=== PATIENT | male | born 1935 | race Caucasian/White ===

== ENCOUNTER 2017-05-26 23:37 | Inpatient (IN) | payer OTHER, MEDICARE ==
[~2017-05-26] VITALS: Ht 177.8 cm; Wt 82.7 kg
[2017-05-26 23:45] VITALS: BP 94/53; PULSE 178; RESP 32; TEMP 98.4; O2SAT 95
[2017-05-26 23:50] VITALS: O2SAT 96
[2017-05-26 23:55] VITALS: BP 95/54; PULSE 175; RESP 32; O2SAT 100
[2017-05-27] VITALS (20 sets, daily range): BP systolic 88–140; BP diastolic 50–84; PULSE 72–176; RESP 17–34; TEMP 98–98.8; O2SAT 90–100
[2017-05-27] MEDS ORDERED: SODIUM CHLORIDE 0.9% FLUSH 10 ML FLUSH IVF PRN
[2017-05-27] MEDS ORDERED: ADENOSINE IV SOLN 3 MG/ML 2 ML VIAL IV PUSH ONE ×2
[2017-05-27 00:13] LABS: AUTOMATED NEUTROPHIL # 9.9 TH/MM3 (1.8-7.7); BASOPHIL % 0.2 % (0.0-2.0); EOSINOPHIL % 0.4 % (0.0-4.0); HEMOGLOBIN 13.9 GM/DL (13.0-17.0); LYMPH % 9.2 % (9.0-44.0); LYMPHOCYTE # 1.1 TH/MM3 (1.0-4.8); MEAN CELL VOLUME 91.2 FL (80.0-100.0); MEAN CORPUSCULAR HEMOGLOBIN 30.1 PG (27.0-34.0); MEAN PLATELET VOLUME 8.8 FL (7.0-11.0); MONO % 8.5 % (0.0-8.0); NEUT % 81.7 % (16.0-70.0); PLATELET COUNT 137 TH/MM3 (150-450); RED CELL DISTRIBUTION WIDTH 14.2 % (11.6-17.2); WHITE BLOOD COUNT 12.1 TH/MM3 (4.0-11.0)
--- NOTE | 2017-05-27 00:15 | RADRPT ---
EXAM DATE/TIME: 05/26/2017 23:52 [place] COMPARISON: No previous studies available for comparison. INDICATIONS : Short of breath. MEDICAL HISTORY : Unobtainable SURGICAL HISTORY : Unobtainable ENCOUNTER: Initial ACUITY: 1 day PAIN SCORE: Non-responsive. LOCATION: Bilateral chest FINDINGS: 2 AP views of the chest. The lungs are clear. Cardiomediastinal select is within normal limits. No ev idence of pleural effusion or pneumothorax. CONCLUSION: No acute cardiopulmonary disease identified. Tomy Albarran MD on May 27, 2017 at 0:13 Board Certified Radiologist. This report was verified electronically.
[2017-05-27] MEDS ORDERED: OMEP40CA2 PO (00:21)
[2017-05-27] MEDS ORDERED: SYMB160A INH (00:21)
[2017-05-27] MEDS ORDERED: METO25TA3 PO (00:21)
[2017-05-27] MEDS ORDERED: EZET10 PO (00:21)
[2017-05-27] MEDS ORDERED: IPRA0.02 NEB (00:21)
[2017-05-27] MEDS ORDERED: PLAV75TA29 PO (00:21)
[2017-05-27] MEDS ORDERED: ATOR80TA45 PO (00:21)
[2017-05-27] MEDS ORDERED: FINA5TAB2 PO (00:21)
[2017-05-27] MEDS ORDERED: ASPI-516 CHEW (00:21)
[2017-05-27] MEDS ORDERED: TERA5CAP3 PO (00:21)
[2017-05-27] MEDS ORDERED: SPIRCAP INH (00:21)
[2017-05-27] MEDS ORDERED: LISI-515 PO (00:21)
[2017-05-27 00:23] LABS: INTERNATIONAL NORMALIZED RATIO 1.1 RATIO; PROTHROMBIN TIME - PATIENT 11.3 SEC (9.8-11.6)
--- NOTE | 2017-05-27 00:34 | PD ---
HPI Chief Complaint: Respiratory Symptoms Time Seen by Provider: 23:46 Travel History International Travel<30 days: No Contact w/Intl Traveler<30days: No Traveled to known affect area: No History of Present Illness HPI The patient is an 81 year old -male who presents to the [facility] emergency department with a history of increased shortness of breath throughout the day yesterday with frequent use of his nebulizer treatments. He has a history of severe COPD. His reports that he has basically been unable to breathe without using his nebulizer machine throughout the day today. His shortness of breath became worse when he was trying to lie down to go to sleep. He told his to call ambulance services. On their arrival, the patient was noted to have heart rate in the low 100s, O2 saturations in the mid 70's on room air. The patient had wheezing throughout all lung oro. IV access was obtained prior to her arrival and the patient was given 3 albuterol nebulizer treatments along with 125 mg of Solu-Medrol IV. The patient en route to this facility had improvement in his O2 saturations up into the mid 90s. However, the patient's heart rate went up into the 180s and his blood pressure began to drop. The patient's blood pressure on arrival is in the 70s systolic. The patient denies having any chest pain or chest pressure. He reports that he has memory problems, therefore he requests that his provides his history for him. On her arrival she reports that he has a history of tachycardia 3 times a day past. She reports that medication was given to abort it. She reports that he has seen a clinical cytopathologist in [place] regarding this. She was told that if he develops tachycardia again he should try to bear down to discontinue it. She is unsure of the name of the type of tachycardia. She reports that he has a long-standing history of severe COPD which is been much worse over the last 2 years. On review of systems, the patient denies having any known recent fevers , neck pain, chest pain, abdominal pain, vomiting, diarrhea, urinary symptoms, or neurologic symptoms. The patient reports that he has had a worsening cough over the last couple days. 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 Heart Rhythm Problems: Yes (SVT) Cancer: Yes (PROSTATE) COPD: Yes Cerebrovascular Accident: Yes Hypertension: Yes Medical other: Yes (TOTAL R. CAROTID BLOCK) Tetanus Vaccination: Unknown Influenza Vaccination: No ?: Not Past Surgical History Narrative Surgical The patient's past surgical history is significant for tonsil and adenoidectomy , history of esophageal dilatation. Social History Alcohol Use: No Tobacco Use: No Substance Use: No Allergies-Medications (Allergen,Severity, Reaction): Coded Allergies: No Known Allergies (Verified Allergy, Severe, 05/27/17) Reported Meds & Prescriptions Reported Meds & Active Scripts Active Reported Ipratropium Neb (Ipratropium [place]) 0.5 Mg/2.5 Ml Amp 0.5 Mg NEB Q4HR NEB PRN Atorvastatin (Atorvastatin Calcium) 80 Mg Tab 80 Mg PO HS Spiriva Handihaler (Tiotropium Inh) 18 Mcg Cap 18 Mcg INH DAILY 1 capsule = 18 mcg Symbicort Inh (Budesonide/Formoterol Fumarate) 160-4.5 Mcg/Act Aero 2 Puff INH Q12HR Terazosin (Terazosin HCl) 5 Mg Cap 5 Mg PO HS Lisinopril 20 Mg Tab 20 Mg PO DAILY Omeprazole 40 Mg Cap 40 Mg PO DAILY Metoprolol Tartrate 25 Mg Tab 25 Mg PO BID Finasteride 5 Mg Tab 5 Mg PO DAILY Do not crush. Zetia (Ezetimibe) 10 Mg Tab 10 Mg PO DAILY Plavix (Clopidogrel Bisulfate) 75 Mg Tab 75 Mg PO DAILY Aspirin 81 Mg Chew 81 Mg CHEW DAILY Review of Systems Except as stated in HPI: all other systems reviewed are Neg General / Constitutional: No: Fever Eyes: No: Visual changes HENT: Positive: Congestion, No: Headaches Cardiovascular: Positive: Palpitations, Tachycardia, Dyspnea on exertion, No: Chest Pain or Discomfort Respiratory: Positive: Cough, Shortness of Breath Gastrointestinal: No: Abdominal Pain Genitourinary: No: Dysuria Musculoskeletal: No: Pain Skin: No Rash Neurologic: No: Weakness, Focal Abnormalities, Change in Mentation, Slurred Speech, Sensory Disturbance Psychiatric: No: Depression Endocrine: No: Polydipsia Hematologic/Lymphatic: No: Easy Bruising Physical Exam Narrative General: The patient is a well-developed well-nourished male, uncomfortable appearing on arrival with some respiratory distress noted. Head and Neck exam: Head is normocephalic atraumatic. Eyes: EOMI, pupils are equal round and reactive to light. Nose: Midline septum with pink mucous membranes Mouth: Dentition unremarkable. Moist mucus membranes. Posterior oropharynx is not erythematous. No tonsillar hypertrophy. Uvula midline. Airway patent. Neck: No palpable lymphadenopathy. No nuchal rigidity. No thyromegaly. Cardiovascular: Regular sounding tachycardia with a rate in the 180s without murmurs, gallops, or rubs. No pulse deficit to the extremities and simultaneous auscultation and palpation of his radial artery. Initial blood pressure was low in the 70s systolic, however repeat blood pressure is up to 94 systolic. Lungs: Expiratory wheezes audible throughout bilateral lung oro, no rhonchi, no crackles. The patient has a prolonged expiratory phase of breathing. The patient has some accessory muscle use noted. No paroxysmal abdominal breathing. Abdomen: Soft, without tenderness to palpation in all 4 quadrants of the abdomen. No guarding, rebound, or rigidity. Normal bowel sounds are audible. No tenderness on palpation of McBurney's point. Extremities: No clubbing or cyanosis. The patient has 2+ pitting edema bilateral lower extremities. 2+ pulses in all 4 extremities. No calf tenderness on palpation. Back: No costovertebral angle tenderness to palpation. Neurologic Exam: Grossly nonfocal. Skin Exam: No rash noted. Intact skin that is warm and dry. Data Data Last Documented VS Vital Signs Date Time Temp Pulse Resp B/P (MAP) Pulse Ox O2 Delivery O2 Flow Rate FiO2 05/27/17 01:51 97 40 05/27/17 00:55 116 20 125/59 (81) BiPAP 05/26/17 23:50 4.00 05/26/17 23:45 98.4 Orders Orders Electrocardiogram (05/26/17 23:47) Complete Blood Count With Diff (05/26/17 23:47) Comprehensive Metabolic Panel (05/26/17 23:47) Creatine Kinase (Cpk) (05/26/17 23:47) Ckmb (Isoenzyme) Profile (05/26/17 23:47) Troponin I (05/26/17 23:47) B-Type Natriuretic Peptide (05/26/17 23:47) Prothrombin Time / Inr (Pt) (05/26/17 23:47) Act Partial Throm Time (Ptt) (05/26/17 23:47) C-Reactive Protein (Crp) (05/26/17 23:47) Lipase (05/26/17 23:47) Urinalysis - C+S If Indicated (05/26/17:47) Magnesium (Mg) (05/26/17 23:47) Thyroid Stimulating Hormone (05/26/17 23:47) Chest, Single Ap (05/26/17 23:47) Iv Access Insert/Monitor (05/26/17 23:47) Ecg Monitoring (05/26/17:47) Oximetry (05/26/17:47) Adenosine Inj (Adenocard Inj) (05/27/17 00:00) Adenosine Inj (Adenocard Inj) (05/27/17 00:00) Sodium Chlor 0.9% 1000 Ml Inj (Ns 1000 M (05/27/17 00:00) Arterial Blood Gas (Abg) (05/26/17 23:51) Blood Culture (05/26/17 23:51) Urinary Catheter Insert/Apply (05/26/17 23:51) Sodium Chloride 0.9% Flush (Ns Flush) (05/27/17 00:00) Resp Bipap / Cpap Non Invas Vt (05/26/17 23:51) Lactic Acid Sepsis Protocol (05/26/17 23:51) CKMB (05/26/17 23:38) CKMB% (05/26/17 23:38) Sodium Chlor 0.9% 1000 Ml Inj (Ns 1000 M (05/27/17 01:52) Sodium Chlor 0.9% 1000 Ml Inj (Ns 1000 M (05/27/17 01:52) Sodium Chlor 0.9% 1000 Ml Inj (Ns 1000 M (05/27/17 01:52) Ceftriaxone Inj (Rocephin Inj) (05/27/17 02:00) Azithromycin Inj (Zithromax Inj) (05/27/17 02:00) Admit Order (Ed Use Only) (05/27/17 02:07) Labs Laboratory Tests Test 05/26/17 23:38 05/26/17 23:58 05/27/17 00:02 05/27/17 01:50 White Blood Count 12.1 TH/MM3 Red Blood Count 4.60 MIL/MM3 Hemoglobin 13.9 GM/DL Hematocrit 42.0 % Mean Corpuscular Volume 91.2 FL Mean Corpuscular Hemoglobin 30.1 PG Mean Corpuscular Hemoglobin Concent 33.0 % Red Cell Distribution Width 14.2 % Platelet Count 137 TH/MM3 Mean Platelet Volume 8.8 FL Neutrophils (%) (Auto) 81.7 % Lymphocytes (%) (Auto) 9.2 % Monocytes (%) (Auto) 8.5 % Eosinophils (%) (Auto) 0.4 % Basophils (%) (Auto) 0.2 % Neutrophils # (Auto) 9.9 TH/MM3 Lymphocytes # (Auto) 1.1 TH/MM3 Monocytes # (Auto) 1.0 TH/MM3 Eosinophils # (Auto) 0.0 TH/MM3 Basophils # (Auto) 0.0 TH/MM3 CBC Comment DIFF FINAL Differential Comment Prothrombin Time 11.3 SEC Prothromb Time International Ratio 1.1 RATIO Activated Partial Thromboplast Time 28.9 SEC Blood Urea Nitrogen 18 MG/DL Creatinine 1.63 MG/DL Random Glucose 131 MG/DL Total Protein 6.2 GM/DL Albumin 3.1 GM/DL Calcium Level 8.1 MG/DL Magnesium Level 1.7 MG/DL Alkaline Phosphatase 62 U/L Aspartate Amino Transf (AST/SGOT) 20 U/L Alanine Aminotransferase (ALT/SGPT) 16 U/L Total Bilirubin 0.4 MG/DL Sodium Level 137 MEQ/L Potassium Level 3.5 MEQ/L Chloride Level 99 MEQ/L Carbon Dioxide Level 25.2 MEQ/L Anion Gap 13 MEQ/L Estimat Glomerular Filtration Rate 41 ML/MIN Total Creatine Kinase 304 U/L Creatine Kinase MB 7.0 NG/ML Troponin I 0.02 NG/ML C-Reactive Protein 11.40 MG/DL B-Type Natriuretic Peptide 28 PG/ML Lipase 62 U/L Thyroid Stimulating Hormone 3rd Gen 1.970 uIU/ML Lactic Acid Level 4.6 mmol/L 3.7 mmol/L Blood Gas Puncture Site RT RADIAL Blood Gas Patient Temperature 98.6 Blood Gas HCO3 21 mmol/L Blood Gas Base Excess -4.6 mmol/L Blood Gas Oxygen Saturation 97 % Arterial Blood pH 7.28 Arterial Blood Partial Pressure CO2 46 mmHg Arterial Blood Partial Pressure O2 113 mmHG Arterial Blood Oxygen Content 18.2 Vol % Arterial Blood Carboxyhemoglobin 1.1 % Arterial Blood Methemoglobin 0.5 % Blood Gas Hemoglobin 13.2 G/DL Oxygen Delivery Device NPPV Blood Gas Ventilator Setting IPAP 12/ EPAP 5 Blood Gas Inspired Oxygen 40 % MDM Medical Decision Making Medical Screen Exam Complete: Yes Emergency Medical Condition: Yes Medical Record Reviewed: Yes Interpretation(s) Last Impressions Chest X-Ray 05/26/17 [id number] Signed Impressions: Service Date/Time: April 23:52 - CONCLUSION: No acute cardiopulmonary disease identified. Tomy Albarran MD Differential Diagnosis COPD exacerbation, versus pneumothorax, versus congestive heart failure, versus acute coronary syndrome, versus SVT, versus atrial fibrillation, versus ventricular tachycardia with pulse Narrative Course During the course of the patients emergency department visit, the patients history, examination, and differential diagnosis were reviewed with the patient. The patient was placed on a air sampling and monitoring with oximetry and frequent blood pressure monitoring. The patient had IV access obtained and blood work sent for analysis. An ECG was done on arrival. The patient's ECG shows a regular appearing tachycardia with a heart rate of 183, QRS duration 130 ms, QTC 385 ms with marked right axis deviation, right bundle branch block, ST depression noted. As the patient's initial blood pressure was low. The patient was started on normal saline 1 L IV fluid bolus in preparation for possible synchronize cardioversion. Pacer pads were applied to the patient. The patient's blood pressure improved. The patient was placed on BiPAP by respiratory therapy. The patient was given adenosine 6 mg IV without response, and additional 12 mg IV was pushed by me. The patient converted to a sinus tachycardia. EKG then showed sinus tachycardia rate of 123, right bundle branch block with a left anterior fascicular block, no other acute ST changes. On reassessment, the patient was resting more comfortably, shortness of breath was improving on BiPAP. Blood pressure had improved to a systolic between the 120s and 130s. The patients laboratory studies were reviewed and remarkable for a white count of 12.1, hemoglobin 13.9, platelets 137 with 81.7 neutrophils. Blood cultures 2 were ordered, lactic acid was sent for analysis. CMP is remarkable for creatinine 1.63, glucose 131, calcium 8.1, CPK 304, troponin I 0.02, CRP is elevated at 11.4, BNP 28, lipase 62, TSH 1.97. Due to a concern for underlying infectious process with a respiratory source, the patient was started on Rocephin 1 g IV, Zithromax 500 IV. As the patient's BNP was normal, the patient was started on a 30 mL per KG IV fluid bolus after his lactic acid came back elevated at 4.6. PT 11.3, PTT 28.9. Urinalysis shows 150 glucose, trace occult blood, small leukocyte esterase, 7 WBCs Radiology studies were reviewed and remarkable for a chest x-ray that showed no acute cardiopulmonary disease. The patients results were discussed with the patient, including the plan of care. I explained that further testing and/ or monitoring is indicated based on the patients history, examination, and/ or laboratory findings. Therefore, I recommended admission for additional evaluation. The patient expressed understanding and was agreeable with this plan. The patient was admitted to the hospital in critical condition and sent to a bed under the care of the oil sprayer service. Critical Care Narrative Aggregate critical care time was 42 minutes. Time to perform other separately billable procedures was not included in the critical care time. My time did not include minutes spent treating any other patients simultaneously or on activities that did not directly contribute to the patient's treatment. The services I provided to this patient were to treat and/or prevent clinically significant deterioration that could result in: Cardiovascular collapse related to cardiac arrhythmia, versus fluid overload from over resuscitation with crystalloid, versus respiratory failure I provided critical care services requiring my management, as noted below: Chart data review, documentation time, medication orders and management, vital sign assessments/reviewing monitor data, ordering and reviewing lab tests, ordering and interpreting/reviewing x-rays and diagnostic studies, care of the patient and discussion of the patient with the admitting physicians. Sepsis Criteria SIRS Criteria (2 or more): Heart rate over 90, RR > 20 or PaCO2 < 32, WBC > 80125, < 4000 or > 10% bands Sepsis Criteria (SIRS+source): Infect source susp/known Severe Sepsis (+one): Lactate >2 Criteria Outcome: Meets SIRS criteria, Meets sepsis criteria, Meets severe sepsis criteria Physician Communication Physician Communication The patient's case including history, pertinent physical examination findings, and laboratory studies were discussed with Dr. Elliott. It was agreed that the patient would be admitted to the oil sprayer's service. Diagnosis Primary Impression: SVT (supraventricular tachycardia) Additional Impressions: Lactic acidosis Hypotension Qualified Codes: I95.9 - Hypotension, unspecified COPD exacerbation Admitting Information Admitting Physician Requests: Admit Amy Leonard MD May 27, 2017 00:34
[2017-05-27 00:35] LABS: LACTIC ACID SEPSIS PROTOCOL 4.6 mmol/L (0.4-2.0)
[2017-05-27 00:49] LABS: ALBUMIN 3.1 GM/DL (3.4-5.0); ALT (GPT) 16 U/L (12-78); AST (GOT) 20 U/L (15-37); BICARBONATE 25.2 MEQ/L (21.0-32.0); BLOOD UREA NITROGEN 18 MG/DL (7-18); CALCIUM 8.1 MG/DL (8.5-10.1); CHLORIDE 99 MEQ/L (98-107); CREATININE 1.63 MG/DL (0.60-1.30); GLOMERULAR FILTRATION RATE 41 ML/MIN (>89); GLUCOSE,RANDOM 131 MG/DL (74-106); LIPASE 62 U/L (73-393); MAGNESIUM 1.7 MG/DL (1.5-2.5); SODIUM (NA) 137 MEQ/L (136-145)
[2017-05-27 00:58] LABS: ALKALINE PHOSPHATASE 62 U/L (45-117); TOTAL BILIRUBIN ADULT 0.4 MG/DL (0.2-1.0); TOTAL PROTEIN 6.2 GM/DL (6.4-8.2); TROPONIN I 0.02 NG/ML (0.02-0.05)
[2017-05-27] MEDS ORDERED: SODIUM CHLOR 0.9% 1000 ML INJ 1,000 ML IV ONE ×3 (01:52)
[2017-05-27] MEDS ORDERED: SODIUM CHLOR 0.9% 1000 ML INJ 700 ML IV ONE (01:52)
[2017-05-27] MEDS ORDERED: AZITHROMYCIN INJ 500 MG in SODIUM CHLOR 0.9% 250 ML INJ 250 ML IV ONE (02:00)
[2017-05-27] MEDS ORDERED: cefTRIAXone INJ 1,000 MG in SODIUM CHLORIDE 0.9% INJ 100 ML IV ONE (02:00)
--- NOTE | 2017-05-27 02:46 | HHI.HP ---
HPI Service Critical Care Medicine Primary Care Physician Unknown Admission Diagnosis COPD exacerbation, SVT, hypotension Diagnosis: (1) Lactic acidosis Diagnosis: Secondary (2) Vascular dementia Diagnosis: Secondary (3) Leukocytosis Diagnosis: Secondary (4) SVT (supraventricular tachycardia) Diagnosis: Principal (5) Emphysema lung Diagnosis: Secondary (6) Prostate cancer Diagnosis: Secondary (7) GERD (gastroesophageal reflux disease) Diagnosis: Secondary (8) HTN (hypertension) Diagnosis: Secondary (9) HLD (hyperlipidemia) Diagnosis: Secondary (10) CKD (chronic kidney disease) stage 3, GFR 30-59 ml/min Diagnosis: Secondary (11) COPD exacerbation Diagnosis: Principal (12) History of stroke Diagnosis: Secondary (13) Acute on chronic respiratory failure with hypoxia and hypercapnia Diagnosis: Principal Travel History International Travel<30 Days: No Contact w/Intl Traveler <30 Da: No Traveled to Known Affected Are: No History of Present Illness 81 year-old male with past medical history of 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 His states that he woke up at around 2 AM on 05/25 with severe shortness of breath. He had a fever 101.2. He also had urinary frequency and constipation. He went to his primary physician where he was given a prescription for Bactrim and Lasix. For the last 2 days he has been using his nebulizer treatments "almost constantly". Tonight his shortness of breath became so bad that E VAC was called. His sats were in the 70s upon E VAC arrival. He was given nebs 3 and Solu-Medrol. He was initially normotensive upon E VAC arrival but when he arrived to the emergency department his heart rate was in the 180s with blood pressure in the 70s. He was in SVT and received adenosine 6 mg IV and adenosine 12 mg IV and converted to sinus rhythm and blood pressure improved.. Due to hypoxia and increased work of breathing he was placed on BiPAP 12/540% and on these settings his pH was 7.28/PaCO2 46/PA O2 of 113/bicarbonate 21. He is now improved and is on nasal cannula. He denies chest pain, productive cough , hemoptysis. He has received azithromycin and Rocephin in the emergency department. Chest x-ray is clear. Review of Systems ROS Limitations: Poor Historian Constitutional: COMPLAINS OF: Fever Past Family Social History Allergies: Coded Allergies: No Known Allergies (Verified Allergy, Severe, 05/27/17) Past Medical History COPD Emphysema Stroke in 1997 with residual left hand weakness Vascular dementia Hypertension Esophageal stricture status post dilation 3 Prior tobacco abuse BPH Hyperlipidemia Prostate Cancer, previously refused radiation states he has had 3 prior episodes of SVT which resulted in hypotension Past Surgical History EGD with esophageal stricture dilation Colonoscopy Cardiac catheterization 12/01/15 - states no coronary disease. Reported Medications Ipratropium 0.5 neb every 4 hours as needed for shortness of breath Spiriva 18 g inhaled daily Plavix 75 mg by mouth daily Zetia 10 mg by mouth daily Atorvastatin 80 mg by mouth daily at bedtime Terazosin 5 mg by mouth every at bedtime Metoprolol 25 mg by mouth twice a day Lisinopril 20 mg by mouth daily Aspirin 81 mg by mouth daily Symbicort 160/4.52 puffs inhaled every 12 Omeprazole 40 mg by mouth daily Finasteride 5 mill grams by mouth daily Family History Mother of stroke at age 75 Father at age 96 and did not really have any health issues Social History Smoked 3 packs of cigarettes per day for 45 years. Quit smoking in 1997 Drinks 2 alcoholic beverages a day Has a walker but doesn't use it. Has an electric scooter. He is He and his have been residing temporarily in an efficiency condo since February. She states she is concerned about the air quality in the condo. Physical Exam Vital Signs Vital Signs Date Time Temp Pulse Resp B/P (MAP) Pulse Ox O2 Delivery O2 Flow Rate FiO2 05/27/17 02:29 95 3.00 05/27/17 02:20 98 20 134/84 (101) 98 Nasal Cannula 3.00 05/27/17 01:51 97 40 05/27/17 00:55 116 20 125/59 (81) 99 BiPAP 40 05/27/17 00:06 125 20 114/59 (77) 100 BiPAP 40 05/27/17 00:04 176 24 88/50 (63) 100 BiPAP 40 05/26/17 23:55 175 32 95/54 (68) 100 BiPAP 40 05/26/17 23:50 182 32 96 Nasal Cannula 4.00 05/26/17 23:50 96 40 05/26/17 23:45 98.4 178 32 94/53 (23) 95 Physical Exam GENERAL: Elderly male who is sitting up in ED stretcher. He is on nasal cannula. He defers to his to answer questions. SKIN: Warm and dry, adequately perfused. No diaphoresis. HEAD: Atraumatic. Normocephalic. EYES: Pupils equal and round. ENT: No nasal bleeding or discharge. Mucous membranes dry NECK: Trachea is midline CARDIOVASCULAR: Heart sounds are very distant, tachycardic. No murmur rub or gallop appreciated RESPIRATORY: Diminished breath sounds bilaterally with wheeze. No Rales GASTROINTESTINAL: Abdomen soft, non-tender, nondistended. Bowel sounds present. MUSCULOSKELETAL: Extremities without clubbing, cyanosis. 1+ pitting edema of lower extremities NEUROLOGICAL: Awake and alert, following commands. Strength is 5 out of 5 biceps/triceps, ankle and her and dorsiflexion bilaterally. L hand stiff with weak hand intrinsics and decreased fine motor coordination. Laboratory Laboratory Tests Test 05/26/17 23:38 05/26/17 23:58 05/27/17 00:02 05/27/17 01:50 White Blood Count 12.1 Red Blood Count 4.60 Hemoglobin 13.9 Hematocrit 42.0 Mean Corpuscular Volume 91.2 Mean Corpuscular Hemoglobin 30.1 Mean Corpuscular Hemoglobin Concent 33.0 Red Cell Distribution Width 14.2 Platelet Count 137 Mean Platelet Volume 8.8 Neutrophils (%) (Auto) 81.7 Lymphocytes (%) (Auto) 9.2 Monocytes (%) (Auto) 8.5 Eosinophils (%) (Auto) 0.4 Basophils (%) (Auto) 0.2 Neutrophils # (Auto) 9.9 Lymphocytes # (Auto) 1.1 Monocytes # (Auto) 1.0 Eosinophils # (Auto) 0.0 Basophils # (Auto) 0.0 CBC Comment DIFF FINAL Differential Comment Prothrombin Time 11.3 Prothromb Time International Ratio 1.1 Activated Partial Thromboplast Time 28.9 Blood Urea Nitrogen 18 Creatinine 1.63 Random Glucose 131 Total Protein 6.2 Albumin 3.1 Calcium Level 8.1 Magnesium Level 1.7 Alkaline Phosphatase 62 Aspartate Amino Transf (AST/SGOT) 20 Alanine Aminotransferase (ALT/SGPT) 16 Total Bilirubin 0.4 Sodium Level 137 Potassium Level 3.5 Chloride Level 99 Carbon Dioxide Level 25.2 Anion Gap 13 Estimat Glomerular Filtration Rate 41 Total Creatine Kinase 304 Creatine Kinase MB 7.0 Troponin I 0.02 C-Reactive Protein 11.40 B-Type Natriuretic Peptide 28 Lipase 62 Thyroid Stimulating Hormone 3rd Gen 1.970 Lactic Acid Level 4.6 3.7 Blood Gas Puncture Site RT RADIAL Blood Gas Patient Temperature 98.6 Blood Gas HCO3 21 Blood Gas Base Excess -4.6 Blood Gas Oxygen Saturation 97 Arterial Blood pH 7.28 Arterial Blood Partial Pressure CO2 46 Arterial Blood Partial Pressure O2 113 Arterial Blood Oxygen Content 18.2 Arterial Blood Carboxyhemoglobin 1.1 Arterial Blood Methemoglobin 0.5 Blood Gas Hemoglobin 13.2 Oxygen Delivery Device NPPV Blood Gas Ventilator Setting IPAP 12/ EPAP 5 Blood Gas Inspired Oxygen 40 Date/Time Source Procedure Growth Status 05/26/17 23:58 Blood Peripheral Aerobic Blood Culture Pending Received 05/26/17 23:58 Blood Peripheral Anaerobic Blood Culture Pending Received Result Diagram: 05/26/17 2338 05/26/17 2338 Caprini VTE Risk Assessment Caprini VTE Risk Assessment: Mod/High Risk (score >= 2) Caprini Risk Assessment Model Point Value = 1 Point Value = 2 Point Value = 3 Point Value = 5 Age 41-60 Minor surgery BMI > 25 kg/m2 Swollen legs Varicose veins or History of unexplained or recurrent spontaneous Oral contraceptives or hormone replacement Sepsis (< 1 month) Serious lung disease, including pneumonia (< 1 month) Abnormal pulmonary function Acute myocardial infarction Congestive heart failure (< 1 month) History of inflammatory bowel disease Medical patient at bed rest Age 61-74 Arthroscopic surgery Major open surgery (> 45 min) Laparoscopic surgery (> 45 min) Malignancy Confined to bed (> 72 hours) Immobilizing plaster cast Central venous access Age >= 75 History of VTE Family history of VTE Factor V Leiden Prothrombin [id number] Lupus anticoagulant Anticardiolipin antibodies Elevated serum homocysteine Heparin-induced thrombocytopenia Other congenital or acquired thrombophilia Stroke (< 1 month) Elective arthroplasty Hip, pelvis, or leg fracture Acute spinal cord injury (< 1 month) Prophylaxis Regimen Total Risk Factor Score Risk Level Prophylaxis Regimen 0-1 Low Early ambulation 2 Moderate Order ONE of the following: *Sequential Compression Device (SCD) *Heparin 5000 units SQ BID 3-4 Higher Order ONE of the following medications: *Heparin 5000 units SQ TID *Enoxaparin/Lovenox 40 mg SQ daily (WT < 150 kg, CrCl > 30 mL/min) *Enoxaparin/Lovenox 30 mg SQ daily (WT < 150 kg, CrCl > 10-29 mL/min) *Enoxaparin/Lovenox 30 mg SQ BID (WT < 150 kg, CrCl > 30 mL/min) AND/OR *Sequential Compression Device (SCD) 5 or more Highest Order ONE of the following medications: *Heparin 5000 units SQ TID (Preferred with Epidurals) *Enoxaparin/Lovenox 40 mg SQ daily (WT < 150 kg, CrCl > 30 mL/min) *Enoxaparin/Lovenox 30 mg SQ daily (WT < 150 kg, CrCl > 10-29 mL/min) *Enoxaparin/Lovenox 30 mg SQ BID (WT < 150 kg, CrCl > 30 mL/min) AND *Sequential Compression Device (SCD) Assessment and Plan Problem List: (1) Vascular dementia ICD Code: F01.50 - Vascular dementia without behavioral disturbance Status: Chronic (2) History of stroke ICD Code: Z86.73 - Personal history of transient ischemic attack (TIA), and cerebral infarction without residual deficits Status: Chronic (3) HTN (hypertension) ICD Code: I10 - Essential (primary) hypertension (4) HLD (hyperlipidemia) ICD Code: E78.5 - Hyperlipidemia, unspecified Status: Chronic (5) Lactic acidosis ICD Code: E87.2 - Acidosis Status: Acute (6) Leukocytosis ICD Code: D72.829 - Elevated white blood cell count, unspecified Status: Acute (7) COPD exacerbation ICD Code: J44.1 - Chronic obstructive pulmonary disease with (acute) exacerbation Status: Acute (8) Acute on chronic respiratory failure with hypoxia and hypercapnia ICD Code: J96.21 - Acute and chronic respiratory failure with hypoxia; J96.22 - Acute and chronic respiratory failure with hypercapnia Status: Acute (9) Emphysema lung ICD Code: J43.9 - Emphysema, unspecified Status: Chronic (10) GERD (gastroesophageal reflux disease) ICD Code: K21.9 - Gastro-esophageal reflux disease without esophagitis Status: Chronic (11) SVT (supraventricular tachycardia) ICD Code: I47.1 - Supraventricular tachycardia Status: Resolved (12) CKD (chronic kidney disease) stage 3, GFR 30-59 ml/min ICD Code: N18.3 - Chronic kidney disease, stage 3 (moderate) Status: Chronic (13) Prostate cancer ICD Code: C61 - Malignant neoplasm of prostate Status: Chronic Assessment and Plan NEURO: Vascular dementia Ischemic stroke in 1997 with residual left hand weakness Right carotid artery stenosis Continue Plavix 75 mg by mouth daily, ASA 81 mg po daily. RESP: Acute COPD exacerbation Acute hypoxemic and hypercapnic respiratory failure on BiPAP (resolved) Nasal cannula wean as tolerated. Incentive spirometry every hour awake. DuoNeb scheduled every 4 hours. Albuterol Every 2 hours as needed. Solu- Medrol 60 mg IV every 6 hours. Spiriva 18 g inhaled daily Continue antibiotics as per below Patient defers to his about decisions regarding intubation/CODE STATUS. His states that she would like time to think about what she would want if intubation was necessary. At this point if emergent intubation required, would proceed with intubation and mechanical ventilation. CV: SVT acute episode in ED. Has h/o 3 prior episodes SVT Right bundle branch block Hyperlipidemia SVT converted to sinus tachycardia in the ED 05/27 after adenosine Electrolyte replacement as per below. Continue Zetia 10 mill grams by mouth daily Continue atorvastatin 80 mg by mouth daily at bedtime REsume betabolocker when BP allows -->metoprolol 25 mg bid, hold lisinopril 20 mg by mouth daily Obtain Echo. Patient denies chest pain Initial troponin negative. We'll trend Negative cath May 2015 GI: GERD History of esophageal stricture status post dilatation 3 Regular diet. FEN/RENAL: Chronic kidney disease stage III Lactic acidemia Prostate cancer, prostatic hypertrophy Urinary retention Voiding. Monitor I/O. Monitor electrolytes and replace electrolytes as indicated per ICU electrolyte replacement protocol. NS 20 mEq at 100 ml/hr. Place Rashid due to inability to void, respiratory distress. Magnesium 1 gram IV. KCL 20 MEQ po. ID: Leukocytosis Was being treated as an outpatient for UTI with bactrim. Received Rocephin and azithromycin in the emergency department for community acquired organisms in setting of severe COPD/bronchitis and respiratory failure. Will continue. Obtain UA and culture. Follow-up blood cultures Check influenza. HEME: Thrombocytopenia Prostate cancer, previously refused radiation Monitor platelets. ENDO: Mild hyperglycemia. Monitor bedside glucose and initiate low-dose insulin sliding scale as indicated PROPH: Lovenox 30 mg subcutaneous daily for DVT prophylaxis. Famotidine for stress ulcer prophylaxis ACCESS: Peripheral IV providing adequate access at this time. Patients symptoms were very severe upon presentation to the ED and he is at risk for requiring Bipap again so will observe closely in ICU Level III H&P Nadia Elliott MD May 27, 2017 02:46
[2017-05-27] MEDS ORDERED: POTASSIUM PHOSPHATE INJ 30 MMOL in SODIUM CHLOR 0.9% 250 ML INJ 250 ML IV PRN (03:17)
[2017-05-27] MEDS ORDERED: POTASSIUM PHOSPHATE MONOBASIC 500 MG TAB PO/TUBE PRN (03:17)
[2017-05-27] MEDS ORDERED: SODIUM PHOSPHATE INJ 30 MMOL in SODIUM CHLOR 0.9% 250 ML INJ 240 ML IV PRN (03:30)
[2017-05-27] MEDS ORDERED: GLUCAGON 1 MG/ML VIAL OTHER PRN (03:30)
[2017-05-27] MEDS ORDERED: POTASSIUM CHLORIDE 25 MEQ EFFERVESCENT TAB PO PRN (03:30)
[2017-05-27] MEDS ORDERED: POTASSIUM PHOSPHATE MONOBASIC 500 MG TAB PO PRN (03:30)
[2017-05-27] MEDS ORDERED: DEXTROSE 50% IN WATER 50 ML VIAL(D50) IV PUSH PRN (03:30)
[2017-05-27] MEDS ORDERED: RESP: ALBUTEROL 2.5 MG/3 ML NEB (PRN) NEB (03:30)
[2017-05-27] MEDS ORDERED: POTASSIUM CHLOR 20 MEQ PREMIX 100 ML IV PRN ×2 (03:30)
[2017-05-27] MEDS ORDERED: MAGNESIUM SULFATE INJ 4 GM in SODIUM CHLORIDE 0.9% INJ 92 ML IV PRN (03:30)
[2017-05-27] MEDS ORDERED: POTASSIUM CHLOR 40 MEQ PREMIX 100 ML IV PRN ×2 (03:30)
[2017-05-27] MEDS ORDERED: MAGNESIUM OXIDE 400 MG TAB PO PRN (03:30)
[2017-05-27] MEDS ORDERED: MAGNESIUM SULFATE INJ 2 GM in SODIUM CHLORIDE 0.9% INJ 96 ML IV PRN (03:30)
[2017-05-27] MEDS: RESP: ALBUTEROL 2.5 MG/IPRATROPIUM 0.5 MG NEB (SCH) NEB ×5 (03:42→20:20)
[2017-05-27] MEDS ORDERED: SODIUM CHLORIDE 0.9% FLUSH 10 ML FLUSH IV FLUSH PRN (03:45)
[2017-05-27] MEDS ORDERED: ONDANSETRON HCL 4 MG/2 ML VIAL IV PUSH PRN (03:45)
[2017-05-27] MEDS ORDERED: POTASSIUM CHLORIDE 20 MEQ CONTROLLED RELEASE TAB PO ONE (03:45)
[2017-05-27] MEDS ORDERED: CHLORHEXIDINE GLUCONATE 2 % 1 PACK (2 CLOTHS) TOP PRN (03:45)
[2017-05-27] MEDS ORDERED: LACTULOSE SYRUP 20 GM/30 ML CUP PO PRN (03:45)
[2017-05-27] MEDS ORDERED: MAGNESIUM SULFATE 1 GM PREMIX 100 ML IV ONE (03:45)
[2017-05-27] MEDS ORDERED: ACETAMINOPHEN 325 MG TAB PO PRN (03:45)
[2017-05-27] MEDS ORDERED: ACETAMINOPHEN/HYDROcodone 325 MG/5 MG TAB PO PRN (03:45)
[2017-05-27] MEDS ORDERED: BISACODYL 10 MG SUPP RECTAL PRN (03:45)
[2017-05-27] MEDS ORDERED: SENNOSIDES 8.6 MG TAB PO PRN (03:45)
[2017-05-27] MEDS ORDERED: MAGNESIUM HYDROXIDE SUSP 30 ML CUP PO PRN (03:45)
[2017-05-27] MEDS ORDERED: MISCELLANEOUS NURSING INFORMATION XX SCH (03:45)
[2017-05-27] MEDS: CHLORHEXIDINE GLUCONATE 2 % 1 PACK (2 CLOTHS) TOP SCH ×2 (04:00→21:52)
[2017-05-27] MEDS ORDERED: MORPHINE SULFATE 2 MG/ML INJ IV PUSH PRN (04:00)
[2017-05-27] MEDS: NS + KCL 20 MEQ INJ 1,000 ML IV SCH ×2 (04:33→14:08)
[2017-05-27] MEDS: methylPREDNISolone SOD SUCC 125 MG/2 ML VIAL IV PUSH SCH ×4 (04:34→21:06)
[2017-05-27 05:02] LABS: LACTIC ACID SEPSIS PROTOCOL 3.3 mmol/L (0.4-2.0)
[2017-05-27 05:42] LABS: BILIRUBIN, URINE NEG (NEG); BLOOD, URINE TRACE (NEG); GLUCOSE,URINE 150 mg/dL (NEG); HYALINE CAST, URINE 6 /lpf (RARE); KETONE, URINE NEG (NEG); MUCUS URINE FEW /lpf (OCC); NITRITE,URINE NEG (NEG); PH, URINE 5.5 (5.0-8.5); SQUAMOUS EPITHELIAL CELL URINE 1 /hpf (0-5); URINE COLOR YELLOW (YELLW/STRAW); URINE LEUKOCYTE ESTERASE SMALL (NEG)
[2017-05-27 06:24] LABS: CALCIUM 7.4 MG/DL (8.5-10.1); CREATININE 1.47 MG/DL (0.60-1.30)
[2017-05-27 06:30] LABS: TROPONIN I 0.4 NG/ML (0.02-0.05)
[2017-05-27 07:05] LABS: CALCIUM-PROTEIN CORRECTED 8.1 MG/DL (8.5-10.1); TOTAL PROTEIN 5.8 GM/DL (6.4-8.2)
[2017-05-27] MEDS: INSULIN ASPART SUPPLEMENTAL SCALE SQ SCH ×4 (08:00→20:55)
[2017-05-27] MEDS: CLOPIDOGREL 75 MG TAB PO SCH (08:55)
[2017-05-27] MEDS: EZETIMIBE 10 MG TAB PO SCH (08:55)
[2017-05-27] MEDS: DOCUSATE SODIUM 50 MG/SENNA 8.6 MG TAB PO SCH ×2 (08:55→20:28)
[2017-05-27] MEDS: ASPIRIN 81 MG CHEW TAB CHEW SCH (08:55)
[2017-05-27] MEDS: METOPROLOL TARTRATE 25 MG TAB PO SCH ×2 (08:55→20:28)
[2017-05-27] MEDS: FAMOTIDINE 20 MG TAB PO SCH ×2 (08:56→20:29)
[2017-05-27] MEDS: FAMOTIDINE 20 MG/2 ML VIAL IV PUSH SCH ×2 (08:56→20:29)
[2017-05-27] MEDS: ENOXAPARIN SODIUM 30 MG/0.3 ML SYRINGE SQ SCH (08:56)
[2017-05-27] MEDS: TIOTROPIUM BROMIDE 18 MCG INH INH SCH (08:57)
[2017-05-27] MEDS: SODIUM CHLORIDE 0.9% FLUSH 10 ML FLUSH IV FLUSH SCH ×2 (08:57→20:27)
--- NOTE | 2017-05-27 13:52 | EKG ---
Date Performed: 05/27/2017 Time Performed: 00:11:29 PTAGE: 81 years EKG: SINUS TACHYCARDIA RIGHT BUNDLE BRANCH BLOCK LEFT ANTERIOR FASCICULAR BLOCK ABNORMAL ECG PREVIOUS TRACING : 05/26/2017 23.40 Since prior tracing, rhythm appears more consistent with si nus tachycardia. Right bundle branch block and left anterior fascicular block remain. DOCTOR: Don Puri Interpretating Date/Time 05/27/2017 13:51:37
--- NOTE | 2017-05-27 13:52 | EKG ---
Date Performed: 05/27/2017 Time Performed: 03:57:02 PTAGE: 81 years EKG: SINUS TACHYCARDIA MARKED LEFT AXIS DEVIATION RIGHT BUNDLE BRANCH BLOCK ABNORMAL ECG PREVIOUS TRACING : 04/11/2002 18.09 Compared to prior tracing no significant change DOCTOR: Don Puri Interpretating Date/Time 05/27/2017 13:51:53
--- NOTE | 2017-05-27 13:52 | EKG ---
Date Performed: 05/26/2017 Time Performed: 23:40:04 PTAGE: 81 years EKG: UNCERTAIN IRREGULAR RHYTHM MARKED RIGHT AXIS DEVIATION RIGHT BUNDLE BRANCH BLOCK ST DEPRESS ION, CONSIDER SUBENDOCARDIAL INJURY ABNORMAL ECG PREVIOUS TRACING : 04/11/2002 18.09 Since prior tracing, rapid wide complex run is new. It is m ost likely rapid atrial fibrillation with right bundle branch block and left anterior fascicular bloc k. However, ventricular tachycardia is not entirely excluded. Both the conduction delay and rhythm ar e changes from the prior delay. Clinical correlation is advised. DOCTOR: Don Puri Interpretating Date/Time 05/27/2017 13:50:59
[2017-05-27] MEDS: LEVOFLOXACIN 750 MG TAB PO SCH (14:09)
[2017-05-27] MEDS: ATORVASTATIN 80 MG TAB PO SCH (20:28)
[2017-05-28] VITALS (8 sets, daily range): BP systolic 118–158; BP diastolic 60–96; PULSE 85–93; RESP 17–20; TEMP 97.8–98.5; O2SAT 92–98
[2017-05-28] MEDS: NS + KCL 20 MEQ INJ 1,000 ML IV SCH (01:00)
[2017-05-28] MEDS: RESP: ALBUTEROL 2.5 MG/IPRATROPIUM 0.5 MG NEB (SCH) NEB ×6 (01:18→20:08)
[2017-05-28] MEDS: methylPREDNISolone SOD SUCC 125 MG/2 ML VIAL IV PUSH SCH ×2 (04:14→08:32)
[2017-05-28 06:52] LABS: AUTOMATED NEUTROPHIL # 11.7 TH/MM3 (1.8-7.7); HEMATOCRIT 37.7 % (39.0-51.0); HEMOGLOBIN 12.9 GM/DL (13.0-17.0); LYMPH % 4.2 % (9.0-44.0); LYMPHOCYTE # 0.5 TH/MM3 (1.0-4.8); MEAN CELL VOLUME 90.6 FL (80.0-100.0); MEAN CORPUSCULAR HGB CONC 34.2 % (32.0-36.0); MEAN PLATELET VOLUME 9.1 FL (7.0-11.0); MONO % 3.1 % (0.0-8.0); MONOCYTE # 0.4 TH/MM3 (0-0.9); NEUT % 92.7 % (16.0-70.0); PLATELET COUNT 152 TH/MM3 (150-450); RED BLOOD COUNT 4.17 MIL/MM3 (4.50-5.90); RED CELL DISTRIBUTION WIDTH 14.3 % (11.6-17.2); WHITE BLOOD COUNT 12.7 TH/MM3 (4.0-11.0)
[2017-05-28 07:14] LABS: ALBUMIN 2.5 GM/DL (3.4-5.0); ALKALINE PHOSPHATASE 57 U/L (45-117); ALT (GPT) 16 U/L (12-78); AST (GOT) 28 U/L (15-37); BICARBONATE 26.1 MEQ/L (21.0-32.0); BLOOD UREA NITROGEN 19 MG/DL (7-18); CALCIUM 7.8 MG/DL (8.5-10.1); CHLORIDE 110 MEQ/L (98-107); CREATININE 0.82 MG/DL (0.60-1.30); GLOMERULAR FILTRATION RATE 90 ML/MIN (>89); GLUCOSE,RANDOM 139 MG/DL (74-106); SODIUM (NA) 141 MEQ/L (136-145); TOTAL BILIRUBIN ADULT 0.3 MG/DL (0.2-1.0); TOTAL PROTEIN 5.4 GM/DL (6.4-8.2)
[2017-05-28] MEDS: INSULIN ASPART SUPPLEMENTAL SCALE SQ SCH ×4 (08:00→21:00)
[2017-05-28] MEDS: ENOXAPARIN SODIUM 30 MG/0.3 ML SYRINGE SQ SCH (08:32)
[2017-05-28] MEDS: METOPROLOL TARTRATE 25 MG TAB PO SCH ×2 (08:32→21:49)
[2017-05-28] MEDS: FAMOTIDINE 20 MG TAB PO SCH ×2 (08:32→21:49)
[2017-05-28] MEDS: ASPIRIN 81 MG CHEW TAB CHEW SCH (08:32)
[2017-05-28] MEDS: LEVOFLOXACIN 750 MG TAB PO SCH (08:32)
[2017-05-28] MEDS: FAMOTIDINE 20 MG/2 ML VIAL IV PUSH SCH ×2 (08:32→21:00)
[2017-05-28] MEDS: DOCUSATE SODIUM 50 MG/SENNA 8.6 MG TAB PO SCH ×2 (08:32→21:00)
[2017-05-28] MEDS: CLOPIDOGREL 75 MG TAB PO SCH (08:33)
[2017-05-28] MEDS: EZETIMIBE 10 MG TAB PO SCH (08:33)
[2017-05-28] MEDS: SODIUM CHLORIDE 0.9% FLUSH 10 ML FLUSH IV FLUSH SCH ×2 (08:33→21:49)
[2017-05-28] MEDS: TIOTROPIUM BROMIDE 18 MCG INH INH SCH (12:37)
--- NOTE | 2017-05-28 16:24 | HHI.PR ---
Subjective Remarks Patient seen this morning around 11:30 AM. Says he is feeling all right. Denies any chest pain or shortness of breath. Reports cough prior to admission. Says he used his inhaler, but seemed to be making things worse. Denies any nausea or vomiting. Objective Vital Signs Date Time Temp Pulse Resp B/P (MAP) Pulse Ox O2 Delivery O2 Flow Rate FiO2 05/28/17 12:00 98.2 90 20 118/60 (79) 95 05/28/17 09:31 95 Nasal Cannula 4.00 05/28/17 08:00 Nasal Cannula 4.00 Humidified 05/28/17 08:00 98.0 85 18 129/60 (83) 95 05/28/17 04:00 98.1 86 17 158/71 (100) 92 05/28/17 00:00 98.1 85 17 129/96 (107) 92 05/27/17 22:00 Nasal Cannula 4.00 Humidified 05/27/17 21:21 98.0 98 17 137/65 (89) 92 05/27/17 20:20 93 Nasal Cannula 6.00 05/27/17 20:00 92 05/27/17 20:00 98.6 94 24 120/58 (78) 95 05/27/17 19:00 95 Nasal Cannula 5.00 05/27/17 18:00 94 I/O 05/27/17 05/27/17 05/27/17 05/28/17 05/28/17 05/28/17 07:00 15:00 23:00 07:00 15:00 23:00 Intake Total 4050 ml 999 ml 740 ml 1682 ml Output Total 350 ml 2025 ml 350 ml Balance 3700 ml 999 ml -1285 ml 1332 ml Intake Oral 0 ml 740 ml 240 ml IV Total 4050 ml 999 ml 1442 ml Output Urine Total 350 ml 2025 ml 350 ml # Bowel Movements 0 1 0 Result Diagram: 05/28/1737 05/28/17536 Objective Remarks GENERAL: Patient sitting up in bed. Appears comfortable. SKIN: Warm and dry. HEAD: Normocephalic. EYES: No scleral icterus. No injection or drainage. NECK: Supple, trachea midline. No JVD . CARDIOVASCULAR: Regular rate and rhythm without murmurs, gallops, or rubs. RESPIRATORY: Breath sounds equal bilaterally. No accessory muscle use. GASTROINTESTINAL: Abdomen soft, non-tender, nondistended. MUSCULOSKELETAL: No cyanosis, or edema. BACK: Nontender without obvious deformity. No CVA tenderness. A/P Assessment and Plan 81-year-old male who arrived with SVT which converted with adenosine, as well as COPD exacerbation. Currently weaning steroids. Consult cardiology for SVT on admission. //Vascular dementia Ischemic stroke in 1997 with residual left hand weakness Right carotid artery stenosis Continue Plavix 75 mg by mouth daily, ASA 81 mg po daily. RESP: //Acute COPD exacerbation //Acute hypoxemic and hypercapnic respiratory failure on BiPAP (resolved) Nasal cannula wean as tolerated. Incentive spirometry every hour awake. DuoNeb scheduled every 4 hours. Albuterol Every 2 hours as needed. Solu- Medrol 60 mg IV every 6 hours. Spiriva 18 g inhaled daily Continue antibiotics as per below Patient defers to his about decisions regarding intubation/CODE STATUS. His states that she would like time to think about what she would want if intubation was necessary. At this point if emergent intubation required, would proceed with intubation and mechanical ventilation. = Wean steroids. Continue antibiotics. CV: //SVT acute episode in ED. Has h/o 3 prior episodes SVT //Right bundle branch block //Hyperlipidemia SVT converted to sinus tachycardia in the ED 05/27 after adenosine Electrolyte replacement as per below. Continue Zetia 10 mill grams by mouth daily Continue atorvastatin 80 mg by mouth daily at bedtime REsume betabolocker when BP allows -->metoprolol 25 mg bid, hold lisinopril 20 mg by mouth daily Obtain Echo. Patient denies chest pain Initial troponin negative. We'll trend Negative cath May 2015 = Consult cardiology. GI: //GERD History of esophageal stricture status post dilatation 3 Regular diet. FEN/RENAL: //Chronic kidney disease stage III //Lactic acidemia //Prostate cancer, prostatic hypertrophy //Urinary retention Voiding. Monitor I/O. Monitor electrolytes and replace electrolytes as indicated per ICU electrolyte replacement protocol. NS 20 mEq at 100 ml/hr. Place Rashid due to inability to void, respiratory distress. Magnesium 1 gram IV. KCL 20 MEQ po. = Remove Rashid. Monitor for retention. ID: //Leukocytosis Was being treated as an outpatient for UTI with bactrim. Received Rocephin and azithromycin in the emergency department for community acquired organisms in setting of severe COPD/bronchitis and respiratory failure. = Cultures negative today. Continue antibiotics. States is stable. Continue to monitor. HEME: //Thrombocytopenia. Resolved //Prostate cancer, previously refused radiation ENDO: Mild hyperglycemia. Monitor bedside glucose and initiate low-dose insulin sliding scale as indicated PROPH: Lovenox 30 mg subcutaneous daily for DVT prophylaxis. Famotidine for stress ulcer prophylaxis ACCESS: Peripheral IV providing adequate access at this time. Discharge Planning Consult PT. Patient will likely need rehabilitation. Weaning steroids pending, cardiology evaluation. Agusto Mcfadden MD May 28, 2017 16:24
[2017-05-28] MEDS: DILTIAZEM HCL 30 MG TAB PO SCH (17:47)
--- NOTE | 2017-05-28 17:52 | MB ---
cc: AQUILINO SEXTON DATE OF CONSULTATION 05/28/17 REASON FOR CONSULTATION Evaluation and treatment of supraventricular tachycardiac HISTORY OF PRESENT ILLNESS Dwight Figueroa is an 81-year-old man with past history of smoking and known chronic severe COPD who has had some SVT requiring adenosine to break it. His emphysema is longstanding. He also has other medical problems as listed below. He came in with a COPD exacerbation, has had some episodes of SVT. His EKG showing sustained SVT at 183 beats per minute with right bundle-branch block pattern, spotting to adenosine currently in sinus tachycardia with a right bundle. The patient does not feel aware of the tachycardia. He had increased his nebulizer use prior to admission. PAST MEDICAL HISTORY 1. Prostate cancer, 2. Gastroesophageal reflux disease, 3. Hyperlipidemia, 4. Chronic kidney disease, 5. Esophageal stricture 6. Normal coronary arteries based on a cath December 01, 2015, previous SVT 7. Known totally occluded right carotid from his previous stroke 8. Emphysema as described above. PAST SURGICAL HISTORY Tonsillectomy. MEDICATIONS 1. Aspirin. 2. Clopidigrel 3. Zetia 4. Metoprolol 25 b.i.d. 5. Lisinopril 20 mg prior to admission. He has not been started on lisinopril here. SOCIAL HISTORY Notable for previous smoking. PHYSICAL EXAMINATION GENERAL: Well-developed, well-nourished elderly man markedly tachypneic but not in severe distress. VITAL SIGNS: Charted. HEENT: Exam unremarkable. NECK: No JVD or bruits. CHEST: Shows diffuse expiratory wheezes throughout all lung oro. CARDIAC: PMI subxiphoid S1-S2 tachycardiac. No S3. ABDOMEN: Soft. EXTREMITIES: Varicose veins particularly left lower extremity but only trace edema. LABORATORY DATA Charted. His creatinine is 0.82, hematocrit 37.7, albumin 22.5. IMPRESSION PSVT secondary to emphysema and catecholamine stimulation from his meds. RECOMMENDATIONS Reduce the metoprolol 12.5 b.i.d. and add calcium channel ellie and add diltiazem 30 mg q.6 h. Prior to discharge, I would change that to once a day. Calcium channel ellie, I would use a higher dose as blood pressure would allow. In rare situations, we have to resort to an EP study and an ablation but usually we would like to control it with medications if possible. Thank you for asking me to see him. Dr. Jin will be professor of public administration the next couple of days and be available as needed. Please call us if there is recurrence of SVT or assistance needed. MD OXANA Fernandez/ /4:36 PM /5:26 PM
[2017-05-28] MEDS: ATORVASTATIN 80 MG TAB PO SCH (21:48)
[2017-05-28] MEDS: methylPREDNISolone SOD SUCC 40 MG/1 ML VIAL IV PUSH SCH (21:49)
[2017-05-28] MEDS: CHLORHEXIDINE GLUCONATE 2 % 1 PACK (2 CLOTHS) TOP SCH (23:56)
[2017-05-29] VITALS (9 sets, daily range): BP systolic 133–165; BP diastolic 70–85; PULSE 70–79; RESP 17–22; TEMP 97.4–98.1; O2SAT 91–98
[2017-05-29] MEDS: DILTIAZEM HCL 30 MG TAB PO SCH ×4 (00:01→17:45)
[2017-05-29] MEDS: RESP: ALBUTEROL 2.5 MG/IPRATROPIUM 0.5 MG NEB (SCH) NEB ×6 (04:00→20:52)
[2017-05-29] MEDS: methylPREDNISolone SOD SUCC 40 MG/1 ML VIAL IV PUSH SCH (06:06)
[2017-05-29] MEDS: INSULIN ASPART SUPPLEMENTAL SCALE SQ SCH ×4 (08:00→21:00)
[2017-05-29] MEDS: TIOTROPIUM BROMIDE 18 MCG INH INH SCH (09:00)
[2017-05-29] MEDS: DOCUSATE SODIUM 50 MG/SENNA 8.6 MG TAB PO SCH ×2 (09:00→21:37)
[2017-05-29] MEDS: SODIUM CHLORIDE 0.9% FLUSH 10 ML FLUSH IV FLUSH SCH ×2 (09:00→21:38)
[2017-05-29] MEDS: FAMOTIDINE 20 MG/2 ML VIAL IV PUSH SCH ×2 (09:00→21:00)
[2017-05-29] MEDS: FAMOTIDINE 20 MG TAB PO SCH ×2 (09:03→21:38)
[2017-05-29] MEDS: CLOPIDOGREL 75 MG TAB PO SCH (09:03)
[2017-05-29] MEDS: EZETIMIBE 10 MG TAB PO SCH (09:03)
[2017-05-29] MEDS: LEVOFLOXACIN 750 MG TAB PO SCH (09:03)
[2017-05-29] MEDS: METOPROLOL TARTRATE 25 MG TAB PO SCH ×2 (09:03→21:38)
[2017-05-29] MEDS: ENOXAPARIN SODIUM 30 MG/0.3 ML SYRINGE SQ SCH (09:04)
[2017-05-29] MEDS: ASPIRIN 81 MG CHEW TAB CHEW SCH (09:04)
--- NOTE | 2017-05-29 17:27 | HHI.PR ---
Subjective Remarks Patient seen this afternoon around 3 PM. Denies any chest pain or shortness of breath. Still with some weakness walking around. Objective Vital Signs Date Time Temp Pulse Resp B/P (MAP) Pulse Ox O2 Delivery O2 Flow Rate FiO2 05/29/17 15:51 97.5 76 20 150/70 (96) 96 05/29/17 12:00 98.1 74 22 148/72 (97) 96 05/29/17 08:24 95 Nasal Cannula 4.00 05/29/17 08:00 97.5 72 20 138/78 (98) 95 05/29/17 08:00 96 Nasal Cannula 4.00 40 Humidified 05/29/17 04:00 97.7 76 18 133/72 (92) 97 05/29/17 00:00 97.4 79 17 140/73 (95) 98 05/28/17 20:11 98 Nasal Cannula 4.00 05/28/17 20:00 98.5 86 17 147/68 (94) 96 05/28/17 20:00 Nasal Cannula 4.00 Humidified I/O 05/28/17 05/28/17 05/28/17 05/29/17 05/29/17 05/29/17 07:00 15:00 23:00 07:00 15:00 23:00 Intake Total 1682 ml 480 ml 580 ml Output Total 350 ml 250 ml 650 ml Balance 1332 ml 230 ml -70 ml Intake Oral 240 ml 480 ml 580 ml IV Total 1442 ml Output Urine Total 350 ml 250 ml 650 ml # Bowel Movements 0 0 0 Result Diagram: 05/28/17 0537 05/28/17536 Objective Remarks GENERAL: Patient sitting up in bed. Appears comfortable. no change on exam from yesterday. SKIN: Warm and dry. HEAD: Normocephalic. EYES: No scleral icterus. No injection or drainage. NECK: Supple, trachea midline. No JVD . CARDIOVASCULAR: Regular rate and rhythm without murmurs, gallops, or rubs. RESPIRATORY: Breath sounds equal bilaterally. No accessory muscle use. GASTROINTESTINAL: Abdomen soft, non-tender, nondistended. MUSCULOSKELETAL: No cyanosis, or edema. BACK: Nontender without obvious deformity. No CVA tenderness. A/P Assessment and Plan 81-year-old male who arrived with SVT which converted with adenosine, as well as COPD exacerbation. Currently weaning steroids. Consult cardiology for SVT on admission. //Vascular dementia Ischemic stroke in 1997 with residual left hand weakness Right carotid artery stenosis Continue Plavix 75 mg by mouth daily, ASA 81 mg po daily. RESP: //Acute COPD exacerbation //Acute hypoxemic and hypercapnic respiratory failure on BiPAP (resolved) Nasal cannula wean as tolerated. Incentive spirometry every hour awake. DuoNeb scheduled every 4 hours. Albuterol Every 2 hours as needed. Solu- Medrol 60 mg IV every 6 hours. Spiriva 18 g inhaled daily Continue antibiotics as per below Patient defers to his about decisions regarding intubation/CODE STATUS. His states that she would like time to think about what she would want if intubation was necessary. At this point if emergent intubation required, would proceed with intubation and mechanical ventilation. = Wean steroids. Continue antibiotics. = 05/29. Wean steroids to prednisone by mouth twice daily. CV: //SVT acute episode in ED. Has h/o 3 prior episodes SVT //Right bundle branch block //Hyperlipidemia SVT converted to sinus tachycardia in the ED 05/27 after adenosine Electrolyte replacement as per below. Continue Zetia 10 mill grams by mouth daily Continue atorvastatin 80 mg by mouth daily at bedtime REsume betabolocker when BP allows -->metoprolol 25 mg bid, hold lisinopril 20 mg by mouth daily Obtain Echo. Patient denies chest pain Initial troponin negative. We'll trend Negative cath May 2015 = She cardiology assistance. Continue diltiazem and beta ellie. Pending echocardiogram. GI: //GERD History of esophageal stricture status post dilatation 3 Regular diet. FEN/RENAL: //Chronic kidney disease stage III //Lactic acidemia //Prostate cancer, prostatic hypertrophy //Urinary retention Voiding. Monitor I/O. Monitor electrolytes and replace electrolytes as indicated per ICU electrolyte replacement protocol. NS 20 mEq at 100 ml/hr. Place Rashid due to inability to void, respiratory distress. Magnesium 1 gram IV. KCL 20 MEQ po. = Remove Rashid. Monitor for retention. ID: //Leukocytosis Was being treated as an outpatient for UTI with bactrim. Received Rocephin and azithromycin in the emergency department for community acquired organisms in setting of severe COPD/bronchitis and respiratory failure. = Cultures negative today. Continue antibiotics. States is stable. Continue to monitor. HEME: //Thrombocytopenia. Resolved //Prostate cancer, previously refused radiation ENDO: Mild hyperglycemia. Monitor bedside glucose and initiate low-dose insulin sliding scale as indicated PROPH: Lovenox 30 mg subcutaneous daily for DVT prophylaxis. Famotidine for stress ulcer prophylaxis ACCESS: Peripheral IV providing adequate access at this time. Discharge Planning Pending echocardiogram. Patient will likely need rehabilitation as per PT. Will need steroid taper Requests prescription for Combivent inhaler Follow-up with pulmonology, cardiology as outpatient. Agusto Mcfadden MD May 29, 2017 17:27
[2017-05-29] MEDS: ATORVASTATIN 80 MG TAB PO SCH (21:37)
[2017-05-29] MEDS: predniSONE 20 MG TAB PO SCH (21:37)
[2017-05-30] VITALS (8 sets, daily range): BP systolic 158–194; BP diastolic 76–88; PULSE 74–78; RESP 18–20; TEMP 97.7–98.3; O2SAT 91–96
[2017-05-30] MEDS: DILTIAZEM HCL 30 MG TAB PO SCH ×3 (00:13→12:26)
[2017-05-30] MEDS: RESP: ALBUTEROL 2.5 MG/IPRATROPIUM 0.5 MG NEB (SCH) NEB ×7 (03:15→23:09)
[2017-05-30] MEDS: CHLORHEXIDINE GLUCONATE 2 % 1 PACK (2 CLOTHS) TOP SCH (03:26)
[2017-05-30] MEDS: INSULIN ASPART SUPPLEMENTAL SCALE SQ SCH ×4 (08:00→20:18)
[2017-05-30] MEDS: TIOTROPIUM BROMIDE 18 MCG INH INH SCH (08:52)
[2017-05-30] MEDS: LEVOFLOXACIN 750 MG TAB PO SCH (08:58)
[2017-05-30] MEDS: METOPROLOL TARTRATE 25 MG TAB PO SCH ×2 (08:58→20:17)
[2017-05-30] MEDS: CLOPIDOGREL 75 MG TAB PO SCH (08:58)
[2017-05-30] MEDS: predniSONE 20 MG TAB PO SCH ×2 (08:58→20:17)
[2017-05-30] MEDS: EZETIMIBE 10 MG TAB PO SCH (08:59)
[2017-05-30] MEDS: ASPIRIN 81 MG CHEW TAB CHEW SCH (08:59)
[2017-05-30] MEDS: SODIUM CHLORIDE 0.9% FLUSH 10 ML FLUSH IV FLUSH SCH ×2 (08:59→20:18)
[2017-05-30] MEDS: FAMOTIDINE 20 MG/2 ML VIAL IV PUSH SCH ×4 (08:59→20:28)
[2017-05-30] MEDS: DOCUSATE SODIUM 50 MG/SENNA 8.6 MG TAB PO SCH ×2 (08:59→20:17)
[2017-05-30] MEDS: ENOXAPARIN SODIUM 30 MG/0.3 ML SYRINGE SQ SCH (09:00)
[2017-05-30] MEDS: FAMOTIDINE 20 MG TAB PO SCH ×2 (09:00→20:18)
[2017-05-30] MEDS ORDERED: LISINOPRIL 10 MG TAB PO ONE (15:30)
[2017-05-30] MEDS ORDERED: DILTIAZEM-CD 120 MG CAP ER PO ONE (15:30)
--- NOTE | 2017-05-30 15:59 | ECHRPT ---
Indication: A FIB FLUTTER CONCLUSIONS Normal left ventricular size. Wall thickness is normal. The left ventricular systolic function is low normal with an estimated ejection fraction in the rang e of 50- 55%. Mitral annular calcification is present. Aortic valve sclerosis is present. Trace aortic valve regurgitation. The pulmonary valve is not well visualized. BP: 129 / 60 HR: 105 Rhythm: MEASUREMENTS (Male / Female) Normal Values Technical Quality:Fair 2D ECHO LV Diastolic Diameter PLAX 4.7 cm 4.2 - 5.9 / 3.9 - 5.3 cm LV Systolic Diameter PLAX 3.7 cm IVS Diastolic Thickness 1.0 cm 0.6 - 1.0 / 0.6 - 0.9 cm LVPW Diastolic Thickness 0.7 cm 0.6 - 1.0 / 0.6 - 0.9 cm LV Relative Wall Thickness 0.4 DOPPLER Mitral E Point Velocity 64.7 cm/s Mitral A Point Velocity 80.9 cm/s Mitral E to A Ratio 0.8 TR Peak Velocity 233.0 cm/s TR Peak Gradient 21.7 mmHg FINDINGS LEFT VENTRICLE Normal left ventricular size. Wall thickness is normal. The left ventricular systolic function is low normal with an estimated ejection fraction in the rang e of 50- 55%. RIGHT VENTRICLE Normal right ventricular size and systolic function. LEFT ATRIUM The left atrial size is normal. RIGHT ATRIUM The right atrial size is normal. ATRIAL SEPTUM Normal atrial septal thickness without atrial level shunting by limited color doppler interrogation. AORTA The aortic root and proximal ascending aorta are normal in size on limited imaging. MITRAL VALVE Mitral annular calcification is present. AORTIC VALVE Aortic valve sclerosis is present. Trace aortic valve regurgitation. TRICUSPID VALVE Structurally normal tricuspid valve. No tricuspid valve stenosis or regurgitation. PULMONARY VALVE The pulmonary valve is not well visualized. VESSELS The inferior vena cava is normal in size. PERICARDIUM No pericardial effusion. Saad Linder MD, FACC (Electronically Signed) Final Date:30 May 2017 15:58
[2017-05-30] MEDS ORDERED: LISI10TA3 PO (16:26)
[2017-05-30] MEDS ORDERED: LEVA750T9 PO (16:26)
[2017-05-30] MEDS ORDERED: METO25TA3 PO (16:26)
[2017-05-30] MEDS ORDERED: DILT120C50 PO (16:26)
[2017-05-30] MEDS ORDERED: Albuterol-Ipratropium Neb NEB (16:26)
[2017-05-30] MEDS ORDERED: PRED10 PO (16:26)
[2017-05-30] MEDS ORDERED: IPRAAER INH (16:27)
--- NOTE | 2017-05-30 16:28 | HHI.FF ---
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 My clinical findings support the need for the requested home health care services because: Deconditioned w/ increased weakness Need for psychosocial assistance I certify that my clinical findings support that this patient is homebound because: Unsafe to leave home unassisted Agusto Mcfadden MD May 30, 2017 16:28
--- NOTE | 2017-05-30 16:34 | HHI.PR ---
Subjective Remarks Patient says he is feeling fine today. Denies any chest pain or shortness breath. Discussed with . She says he is back to baseline, is carrying walker around in room. Objective Vital Signs Date Time Temp Pulse Resp B/P (MAP) Pulse Ox O2 Delivery O2 Flow Rate FiO2 05/30/17 15:03 Room Air 05/30/17 12:00 98.0 78 20 171/76 (107) 91 05/30/17 08:24 91 05/30/17 08:00 97.7 74 18 175/85 (115) 96 05/30/17 04:15 97.8 74 18 169/79 (109) 95 05/30/17 04:00 Room Air 05/30/17 00:00 Room Air 05/29/17 23:26 97.8 70 18 165/85 (111) 91 05/29/17 21:00 Room Air 05/29/17 20:56 93 05/29/17 20:15 Nasal Cannula 4.00 05/29/17 20:00 98.0 76 18 152/73 (99) 92 I/O 05/29/17 05/29/17 05/29/17 05/30/17 05/30/17 05/30/17 07:00 15:00 23:00 07:00 15:00 23:00 Intake Total 580 ml 480 ml 120 ml Output Total 650 ml 350 ml Balance -70 ml 480 ml -230 ml Intake Oral 580 ml 480 ml 120 ml Output Urine Total 650 ml 350 ml # Voids 4 # Bowel Movements 0 1 0 Result Diagram: 05/28/17 0537 05/28/17 0537 Objective Remarks GENERAL: Patient sitting up in chair at bedside. Appears comfortable. SKIN: Warm and dry. HEAD: Normocephalic. EYES: No scleral icterus. No injection or drainage. NECK: Supple, trachea midline. No JVD . CARDIOVASCULAR: Regular rate and rhythm without murmurs, gallops, or rubs. RESPIRATORY: Breath sounds equal bilaterally. No accessory muscle use. GASTROINTESTINAL: Abdomen soft, non-tender, nondistended. MUSCULOSKELETAL: No cyanosis, or edema. BACK: Nontender without obvious deformity. No CVA tenderness. A/P Assessment and Plan 81-year-old male who arrived with SVT which converted with adenosine, as well as COPD exacerbation. Currently weaning steroids. Consult cardiology for SVT on admission. //Vascular dementia Ischemic stroke in 1997 with residual left hand weakness Right carotid artery stenosis Continue Plavix 75 mg by mouth daily, ASA 81 mg po daily. RESP: //Acute COPD exacerbation //Acute hypoxemic and hypercapnic respiratory failure on BiPAP (resolved) Nasal cannula wean as tolerated. Incentive spirometry every hour awake. DuoNeb scheduled every 4 hours. Albuterol Every 2 hours as needed. Solu- Medrol 60 mg IV every 6 hours. Spiriva 18 g inhaled daily Continue antibiotics as per below Patient defers to his about decisions regarding intubation/CODE STATUS. His states that she would like time to think about what she would want if intubation was necessary. At this point if emergent intubation required, would proceed with intubation and mechanical ventilation. = Wean steroids. Continue antibiotics. = 05/29. Wean steroids to prednisone by mouth twice daily. = Continue steroid taper. Continue Levaquin to complete treatment course. CV: //SVT acute episode in ED. Has h/o 3 prior episodes SVT //Right bundle branch block //Hyperlipidemia SVT converted to sinus tachycardia in the ED 05/27 after adenosine Electrolyte replacement as per below. Continue Zetia 10 mill grams by mouth daily Continue atorvastatin 80 mg by mouth daily at bedtime REsume betabolocker when BP allows -->metoprolol 25 mg bid, hold lisinopril 20 mg by mouth daily Obtain Echo. Patient denies chest pain Initial troponin negative. We'll trend Negative cath May 2015 = Appreciate cardiology assistance. Continue diltiazem and beta ellie. Echo cardiogram with EF 55% GI: //GERD History of esophageal stricture status post dilatation 3 Regular diet. FEN/RENAL: //Chronic kidney disease stage III //Lactic acidemia //Prostate cancer, prostatic hypertrophy //Urinary retention Voiding. Monitor I/O. Monitor electrolytes and replace electrolytes as indicated per ICU electrolyte replacement protocol. NS 20 mEq at 100 ml/hr. Place Rashid due to inability to void, respiratory distress. Magnesium 1 gram IV. KCL 20 MEQ po. = Remove Rashid. Monitor for retention. ID: //Leukocytosis Was being treated as an outpatient for UTI with bactrim. Received Rocephin and azithromycin in the emergency department for community acquired organisms in setting of severe COPD/bronchitis and respiratory failure. = Cultures negative today. Continue antibiotics. States is stable. Continue to monitor. HEME: //Thrombocytopenia. Resolved //Prostate cancer, previously refused radiation ENDO: Mild hyperglycemia. Monitor bedside glucose and initiate low-dose insulin sliding scale as indicated PROPH: Lovenox 30 mg subcutaneous daily for DVT prophylaxis. Famotidine for stress ulcer prophylaxis ACCESS: Peripheral IV providing adequate access at this time. Discharge Planning echocardiogram with EF 55%. Patient will likely need rehabilitation as per PT. Will need steroid taper Requests prescription for Combivent inhaler Follow-up with pulmonology, cardiology as outpatient. Agusto Mcfadden MD May 30, 2017 16:34
--- NOTE | 2017-05-30 16:35 | HHI.DS ---
Discharge Summary Admission Date May 27, 2017 at 02:09 Discharge Date: May 30, 2017 Admitting Diagnosis COPD exacerbation, SVT, hypotension (1) Lactic acidosis ICD Code: E87.2 - Acidosis Diagnosis: Secondary Status: Acute (2) Vascular dementia ICD Code: F01.50 - Vascular dementia without behavioral disturbance Diagnosis: Secondary Status: Chronic (3) Leukocytosis ICD Code: D72.829 - Elevated white blood cell count, unspecified Diagnosis: Secondary Status: Acute (4) SVT (supraventricular tachycardia) ICD Code: I47.1 - Supraventricular tachycardia Diagnosis: Principal Status: Resolved (5) Emphysema lung ICD Code: J43.9 - Emphysema, unspecified Diagnosis: Secondary Status: Chronic (6) Prostate cancer ICD Code: C61 - Malignant neoplasm of prostate Diagnosis: Secondary Status: Chronic (7) GERD (gastroesophageal reflux disease) ICD Code: K21.9 - Gastro-esophageal reflux disease without esophagitis Diagnosis: Secondary Status: Chronic (8) HTN (hypertension) ICD Code: I10 - Essential (primary) hypertension Diagnosis: Secondary (9) HLD (hyperlipidemia) ICD Code: E78.5 - Hyperlipidemia, unspecified Diagnosis: Secondary Status: Chronic (10) CKD (chronic kidney disease) stage 3, GFR 30-59 ml/min ICD Code: N18.3 - Chronic kidney disease, stage 3 (moderate) Diagnosis: Secondary Status: Chronic (11) COPD exacerbation ICD Code: J44.1 - Chronic obstructive pulmonary disease with (acute) exacerbation Diagnosis: Principal Status: Acute (12) History of stroke ICD Code: Z86.73 - Personal history of transient ischemic attack (TIA), and cerebral infarction without residual deficits Diagnosis: Secondary Status: Chronic (13) Acute on chronic respiratory failure with hypoxia and hypercapnia ICD Code: J96.21 - Acute and chronic respiratory failure with hypoxia; J96.22 - Acute and chronic respiratory failure with hypercapnia Diagnosis: Principal Status: Acute Procedures no invasive procedures. Brief History - From Admission 81 year-old male with past medical history of severe COPD on 4 L home oxygen, prior stroke in 1997 with residual left hand weakness, vascular dementia , hypertension, hyperlipidemia, SVT who presents to [facility] emergency department with severe shortness of breath. His states that he woke up at around 2 AM on 05/25 with severe shortness of breath. He had a fever 101.2. He also had urinary frequency and constipation. He went to his primary physician where he was given a prescription for Bactrim and Lasix. For the last 2 days he has been using his nebulizer treatments "almost constantly". Tonight his shortness of breath became so bad that E VAC was called. His sats were in the 70s upon E VAC arrival. He was given nebs 3 and Solu-Medrol. He was initially normotensive upon E VAC arrival but when he arrived to the emergency department his heart rate was in the 180s with blood pressure in the 70s. He was in SVT and received adenosine 6 mg IV and adenosine 12 mg IV and converted to sinus rhythm and blood pressure improved.. Due to hypoxia and increased work of breathing he was placed on BiPAP 12/540% and on these settings his pH was 7.28/PaCO2 46/PA O2 of 113/bicarbonate 21. He is now improved and is on nasal cannula. He denies chest pain, productive cough , hemoptysis. He has received azithromycin and Rocephin in the emergency department. Chest x-ray is clear. CBC/BMP: 05/28/17 0537 05/28/17 0537 Significant Findings Laboratory Tests Test 05/28/17 05:37 White Blood Count 12.7 TH/MM3 (4.0-11.0) Red Blood Count 4.17 MIL/MM3 (4.50-5.90) Hemoglobin 12.9 GM/DL (13.0-17.0) Hematocrit 37.7 % (39.0-51.0) Neutrophils (%) (Auto) 92.7 % (16.0-70.0) Lymphocytes (%) (Auto) 4.2 % (9.0-44.0) Neutrophils # (Auto) 11.7 TH/MM3 (1.8-7.7) Lymphocytes # (Auto) 0.5 TH/MM3 (1.0-4.8) Blood Urea Nitrogen 19 MG/DL (7-18) Random Glucose 139 MG/DL (74-106) Total Protein 5.4 GM/DL (6.4-8.2) Albumin 2.5 GM/DL (3.4-5.0) Calcium Level 7.8 MG/DL (8.5-10.1) Chloride Level 110 MEQ/L (98-107) Imaging Last Impressions Chest X-Ray 05/26/17 9006 Signed Impressions: Service Date/Time: April 23:52 - CONCLUSION: No acute cardiopulmonary disease identified. Tomy Albarran MD Hospital Course Patient was started on diltiazem for rate control, and cardiology was consulted. Patient had no further episodes of SVT. Patient was treated for COPD exacerbation. Chest x-ray with no acute findings on admission. Patient will complete antibiotics, as well as steroid taper for COPD exacerbation. Follow-up with primary care, cardiology as outpatient. For problem-based summary from most recent progress note, please see below. 81-year-old male who arrived with SVT which converted with adenosine, as well as COPD exacerbation. Currently weaning steroids. Consult cardiology for SVT on admission. //Vascular dementia Ischemic stroke in 1997 with residual left hand weakness Right carotid artery stenosis Continue Plavix 75 mg by mouth daily, ASA 81 mg po daily. RESP: //Acute COPD exacerbation //Acute hypoxemic and hypercapnic respiratory failure on BiPAP (resolved) Nasal cannula wean as tolerated. Incentive spirometry every hour awake. DuoNeb scheduled every 4 hours. Albuterol Every 2 hours as needed. Solu- Medrol 60 mg IV every 6 hours. Spiriva 18 g inhaled daily Continue antibiotics as per below Patient defers to his about decisions regarding intubation/CODE STATUS. His states that she would like time to think about what she would want if intubation was necessary. At this point if emergent intubation required, would proceed with intubation and mechanical ventilation. = Wean steroids. Continue antibiotics. = 05/29. Wean steroids to prednisone by mouth twice daily. = Continue steroid taper. Continue Levaquin to complete treatment course. CV: //SVT acute episode in ED. Has h/o 3 prior episodes SVT //Right bundle branch block //Hyperlipidemia SVT converted to sinus tachycardia in the ED 05/27 after adenosine Electrolyte replacement as per below. Continue Zetia 10 mill grams by mouth daily Continue atorvastatin 80 mg by mouth daily at bedtime REsume betabolocker when BP allows -->metoprolol 25 mg bid, hold lisinopril 20 mg by mouth daily Obtain Echo. Patient denies chest pain Initial troponin negative. We'll trend Negative cath May 2015 = Appreciate cardiology assistance. Continue diltiazem and beta ellie. Echo cardiogram with EF 55% GI: //GERD History of esophageal stricture status post dilatation 3 Regular diet. FEN/RENAL: //Chronic kidney disease stage III //Lactic acidemia //Prostate cancer, prostatic hypertrophy //Urinary retention Voiding. Monitor I/O. Monitor electrolytes and replace electrolytes as indicated per ICU electrolyte replacement protocol. NS 20 mEq at 100 ml/hr. Place Rashid due to inability to void, respiratory distress. Magnesium 1 gram IV. KCL 20 MEQ po. = Remove Rashid. Monitor for retention. ID: //Leukocytosis Was being treated as an outpatient for UTI with bactrim. Received Rocephin and azithromycin in the emergency department for community acquired organisms in setting of severe COPD/bronchitis and respiratory failure. = Cultures negative today. Continue antibiotics. States is stable. Continue to monitor. HEME: //Thrombocytopenia. Resolved //Prostate cancer, previously refused radiation ENDO: Mild hyperglycemia. Monitor bedside glucose and initiate low-dose insulin sliding scale as indicated PROPH: Lovenox 30 mg subcutaneous daily for DVT prophylaxis. Famotidine for stress ulcer prophylaxis ACCESS: Peripheral IV providing adequate access at this time. Discharge Planning echocardiogram with EF 55%. Patient will likely need rehabilitation as per PT. Will need steroid taper Requests prescription for Combivent inhaler Follow-up with pulmonology, cardiology as outpatient. Pt Condition on Discharge: Good Discharge Disposition: Disch w/ Home Health Serv Discharge Time: > 30 minutes Discharge Instructions DIET: Follow Instructions for: Heart Healthy Diet Activities you can perform: Regular-No Restrictions Follow up Referrals: Cardiology - 2 Weeks with Vasu Leonard MD PCP Follow-up - 1 Week Pulmonology - 1 Week New Medications: Ipratropium-Albuterol Inh (Combivent Respimat Inh) 20-100 Long-Term/Act Aero 1 PUFF INH QID PRN for PRN, #1 INHALER 0 Refills Prednisone (Prednisone) 10 Mg Tab 10 MG PO DAILY for COPD, #9 TAB 0 Refills 20mg daily for 3 days; 10mg daily for 3 days, then stop. Diltiazem CD 24 HR (Diltiazem CD 24 HR) 120 Mg Caper 120 MG PO DAILY for heart, #30 CAP Levofloxacin (Levaquin) 750 Mg Tablet 750 MG PO DAILY for Infection, #3 TAB Lisinopril (Lisinopril) 10 Mg Tab 10 MG PO DAILY for Blood Pressure Management for 30 Days, #30 TAB Metoprolol Tartrate (Metoprolol Tartrate) 25 Mg Tab 12.5 MG PO BID for heart for 30 Days, #30 TAB [Albuterol-Ipratropium Neb] () 1 AMPULE NEBU 1 AMPULE NEB Q4HR NEB PRN for DYSPNEA for 30 Days Continued Medications: Aspirin (Aspirin) 81 Mg Chew 81 MG CHEW DAILY, TAB 0 Refills Atorvastatin (Atorvastatin) 80 Mg Tab 80 MG PO HS for Cholesterol Management, #30 TAB 0 Refills Budesonide-Formoterol Inh (Symbicort Inh) 160-4.5 Mcg/Act Aero 2 PUFF INH Q12HR, #1 INHALER 0 Refills Clopidogrel (Plavix) 75 Mg Tab 75 MG PO DAILY for Blood Clot Prevention, #30 TAB 0 Refills Ezetimibe (Zetia) 10 Mg Tab 10 MG PO DAILY, #30 TAB 0 Refills Finasteride (Finasteride) 5 Mg Tab 5 MG PO DAILY for Manage Prostate Problems, #30 TAB 0 Refills Do not crush. Omeprazole (Omeprazole) 40 Mg Cap 40 MG PO DAILY, #30 CAP 0 Refills Tiotropium Inh (Spiriva Handihaler) 18 Mcg Cap 18 MCG INH DAILY for COPD, #30 CAP 0 Refills 1 capsule = 18 mcg Discontinued Medications: Ipratropium Neb (Ipratropium Neb) 0.5 Mg/2.5 Ml Amp 0.5 MG NEB Q4HR NEB PRN for SHORTNESS OF BREATH, #180 NEBULE 0 Refills Lisinopril (Lisinopril) 20 Mg Tab 20 MG PO DAILY, #30 TAB 0 Refills Metoprolol Tartrate (Metoprolol Tartrate) 25 Mg Tab 25 MG PO BID, #60 TAB 0 Refills Terazosin (Terazosin) 5 Mg Cap 5 MG PO HS, #30 CAP 0 Refills Agusto Mcfadden MD May 30, 2017 16:35
[2017-05-30] MEDS: ATORVASTATIN 80 MG TAB PO SCH (20:18)
[2017-05-31] VITALS: BP 156/78; PULSE 69; RESP 16; TEMP 98.1; O2SAT 92
[2017-05-31] MEDS: CHLORHEXIDINE GLUCONATE 2 % 1 PACK (2 CLOTHS) TOP SCH (02:57)
[2017-05-31] MEDS: RESP: ALBUTEROL 2.5 MG/IPRATROPIUM 0.5 MG NEB (SCH) NEB (03:26)
[2017-05-31 04:00] VITALS: BP 173/82; PULSE 70; RESP 18; TEMP 97.6; O2SAT 97
[2017-05-31 08:00] VITALS: BP 192/86; PULSE 77; RESP 20; TEMP 97.1; O2SAT 97
[2017-05-31] MEDS: INSULIN ASPART SUPPLEMENTAL SCALE SQ SCH (08:00)
[2017-05-31] MEDS: ASPIRIN 81 MG CHEW TAB CHEW SCH (08:47)
[2017-05-31] MEDS: SODIUM CHLORIDE 0.9% FLUSH 10 ML FLUSH IV FLUSH SCH (08:48)
[2017-05-31] MEDS: DOCUSATE SODIUM 50 MG/SENNA 8.6 MG TAB PO SCH (08:48)
[2017-05-31] MEDS: CLOPIDOGREL 75 MG TAB PO SCH (08:48)
[2017-05-31] MEDS: predniSONE 20 MG TAB PO SCH (08:48)
[2017-05-31] MEDS: EZETIMIBE 10 MG TAB PO SCH (08:48)
[2017-05-31] MEDS: LEVOFLOXACIN 750 MG TAB PO SCH (08:49)
[2017-05-31] MEDS: METOPROLOL TARTRATE 25 MG TAB PO SCH (08:49)
[2017-05-31] MEDS: FAMOTIDINE 20 MG TAB PO SCH (08:49)
[2017-05-31] MEDS: ENOXAPARIN SODIUM 30 MG/0.3 ML SYRINGE SQ SCH (08:50)
[2017-05-31] MEDS: FAMOTIDINE 20 MG/2 ML VIAL IV PUSH SCH (08:59)
[2017-05-31] MEDS: TIOTROPIUM BROMIDE 18 MCG INH INH SCH (09:00)
[2017-05-31] MEDS ORDERED: DILTIAZEM-CD 120 MG CAP ER PO SCH (09:00)
[2017-05-31] MEDS ORDERED: LISINOPRIL 10 MG TAB PO SCH (09:00)
[2017-05-31 12:00] VITALS: BP 174/80; PULSE 76; RESP 20; TEMP 98.8; O2SAT 97
== END 2017-05-31 13:07 | disposition home health service (06) | DRG 308 ==
LOC: NEPE 23:37 → NEDA 05-27 02:09 → N03A 05-27 04:50 → N04B 05-27 21:34
PROVIDERS: ADMIT Hospitalist; ATTEND Hospitalist
PROC: 5A09357 Assistance with Respiratory Ventilation, Less than 24 Consecutive Hours, Continuous Positive Airway Pressure (ICD-10-PCS; principal; 2017-05-26)
DX: I47.1 Supraventricular tachycardia (principal); J96.21 Acute and chronic respiratory failure with hypoxia; E87.2 Acidosis; J44.1 Chronic obstructive pulmonary disease with (acute) exacerbation; D69.6 Thrombocytopenia, unspecified; N39.0 Urinary tract infection, site not specified; N18.3 Chronic kidney disease, stage 3 (moderate); I65.21 Occlusion and stenosis of right carotid artery; J96.22 Acute and chronic respiratory failure with hypercapnia; I12.9 Hypertensive chronic kidney disease with stage 1 through stage 4 chronic kidney disease, or unspecified chronic kidney disease; Z79.02 Long term (current) use of antithrombotics/antiplatelets; Z79.82 Long term (current) use of aspirin; F01.50 Vascular dementia, unspecified severity, without behavioral disturbance, psychotic disturbance, mood disturbance, and anxiety; Z86.73 Personal history of transient ischemic attack (TIA), and cerebral infarction without residual deficits; E78.5 Hyperlipidemia, unspecified; K21.9 Gastro-esophageal reflux disease without esophagitis; C61 Malignant neoplasm of prostate; N40.1 Benign prostatic hyperplasia with lower urinary tract symptoms; R33.8 Other retention of urine; R73.9 Hyperglycemia, unspecified; Z87.891 Personal history of nicotine dependence
CPT/HCPCS: 36600; 71010; 80048; 80053; 81001; 82550; 82552; 82805; 82948; 83605; 83690; 83735; 83880; 84155; 84443; 84484; 85025; 85610; 85730; 86140; 87040; 87641; 87804; 93005; 93306; 94002; 94003; 94640; 94664; 96361; 96374; 96375; J0153; J0456; J0696; J1650; J1815; J2920; J2930; J3475; J3480; J7030; J7050; J7512